=== PATIENT | female | born 1995 | race Two or more races ===

== ENCOUNTER 2017-11-13 11:44 | Outpatient (CLI) | payer OTHER | END 2017-11-13 11:55 | disposition home or self-care (01) | LOC: LAB 11:44 | DX: E03.8 Other specified hypothyroidism (principal); E89.0 Postprocedural hypothyroidism ==

== ENCOUNTER 2017-11-13 12:28 | Outpatient (CLI) | payer OTHER | END 2017-11-13 12:39 | disposition home or self-care (01) | LOC: SONOGRAMA 12:28 | DX: E03.8 Other specified hypothyroidism (principal); E04.8 Other specified nontoxic goiter ==

== ENCOUNTER 2017-12-03 08:35 | Outpatient (CLI) | payer OTHER | END 2017-12-03 08:42 | disposition home or self-care (01) | LOC: SONOGRAMA 08:35 | DX: R22.1 Localized swelling, mass and lump, neck (principal) ==